=== PATIENT | female | born 1995 | race African-American/Black ===

== ENCOUNTER 2024-03-10 20:04 | Emergency (ER) | payer MEDICAID ==
[~2024-03-10] VITALS: Ht 162.6 cm; Wt 100.0 kg
[2024-03-10 20:13] VITALS: O2SAT 100
[2024-03-10] MEDS ORDERED: NEOM10SO17 LEFT EAR (20:25)
[2024-03-10] MEDS: ACETAMINOPHEN 500MG TABLET PO NR (20:44)
[2024-03-10] MEDS: NEOMYCIN-POLYMYXIN B-HYDROCORTISONE 1% OTIC SOLN 10ML LEFT EAR ONE (20:44)
[2024-03-10 21:39] VITALS: BP 136/88; PULSE 91; RESP 18; TEMP 98.3
== END 2024-03-10 21:44 | disposition home or self-care (01) ==
LOC: ER 20:04
DX: H60.92 Unspecified otitis externa, left ear (principal)
CPT/HCPCS: 99283